=== PATIENT | male | born 1990 | race Caucasian/White ===

== ENCOUNTER 2018-06-24 07:04 | Inpatient (IN) | payer BC ==
[2018-06-24] VITALS (12 sets, daily range): BP systolic 90–139; BP diastolic 44–70
[~2018-06-24] VITALS: Ht 188 cm; Wt 70.9 kg
[2018-06-24] MEDS ORDERED: NOVOLOG100 UNIT/1 SUBQ (07:13)
[2018-06-24 07:27] LABS: ABSOLUTE LYMPHOCYTES 3.3 thou/uL (0.8-5.3); ABSOLUTE MONOCYTES 0.5 thou/uL (0.0-1.2); ABSOLUTE NEUTROPHILS 5.5 thou/uL (1.6-8.1); BASOPHILS 0.5 %; EOSINOPHILS 0.5 %; HEMATOCRIT 47.8 % (42.0-52.0); HEMOGLOBIN 16.3 gm/dL (14.0-18.0); LYMPHOCYTES 35.1 %; MCH 29.8 pg (26.0-34.0); MCHC 34.1 g/dL (28.0-37.0); MCV 87.4 fL (80.0-100.0); MONOCYTES 5.5 %; MPV 9.9 fl. (7.2-11.1); NUCLEATED RBCS 0 /100WBC; PLATELET COUNT* 211 thou/uL (150-400); POLYS 58.4 %; RBC 5.47 mil/uL (4.50-6.00); RDW-CV 12.5 % (10.5-14.5); WBC 9.4 thou/uL (4.0-11.0)
[2018-06-24 07:33] LABS: BE -16.8 mmol/L (-2 to +3); PCO2 27.2 mmHg (35.0-45.0)
[2018-06-24 07:34] LABS: HCO3 9.9 mmol/L (22.0-26.0); PO2 148.4 mmHg (75.0-100.0); pH 7.178 (7.340-7.450)
[2018-06-24 07:37] LABS: ANION GAP 25 mmol/L (7-16); BUN 19 mg/dL (7-18); CALCIUM 9.6 mg/dL (8.5-10.1); CHLORIDE 96 mmol/L (98-107); CO2 14 mmol/L (21-32); CREATININE 1.3 mg/dL (0.6-1.3); GLUCOSE 439 mg/dL (70-99); POTASSIUM 4.5 mmol/L (3.5-5.1); SODIUM 135 mmol/L (136-145)
[2018-06-24 07:44] LABS: ALBUMIN 4.6 g/dL (3.4-5.0); ALKALINE PHOSPHATASE 151 U/L (46-116); LIPASE 50 U/L (73-393); SGOT 17 U/L (15-37); SGPT 21 U/L (30-65); TOTAL BILIRUBIN 0.9 mg/dL (<0.1-1.0); TOTAL PROTEIN 8.2 g/dL (6.4-8.2); TROPONIN-I LEVEL <0.06 ng/mL (<0.06)
[2018-06-24 08:07] LABS: ICTOTEST (BILI CONFIRMATORY) Negative (Negative); URINE BILIRUBIN 1+ (Negative); URINE BLOOD NEGATIVE (Negative); URINE CLARITY CLEAR; URINE COLOR YELLOW; URINE GLUCOSE-RANDOM 2+ (Negative); URINE KETONES 2+ (Negative); URINE LEUKOCYTES-REFLEX NEGATIVE (Negative); URINE NITRITE-REFLEX NEGATIVE (Negative); URINE PROTEIN NEGATIVE (Negative); URINE SPECIFIC GRAVITY >= 1.030 (1.005-1.030); URINE UROBILINOGEN 0.2 E.U./dl (0.2-1.0)
--- NOTE | 2018-06-24 10:00 | NUR ---
PT ARRIVED TO ICU ROOM 5 AT 0840. VSS. AFEBRILE. ON ROOM AIR. A&OX4. DENIES NAUSEA. NO VOMITING. STATES ACHING ALL OVER, BUT REFUSES MEDICATION AT THIS TIME. PT HAS CLOTHES, SHOES, CELL PHONE, KEYS, AND WALLET WITH HIM AT BEDSIDE. WEARING GLASSES. STATES HE RECENTLY MOVED HERE FROM [place] WITH HIS FAMILY AND DOES NOT HAVE THE SUPPLIES TO CHECK HIS BLOOD SUGAR AT HOME AND DOES NOT HAVE A PROVIDER. HE HAS BEEN GETTING INSULIN FROM [facility]. HE IS REQUESTING TO SPEAK WITH A CM REGARDING THE ISSUES LISTED ABOVE. GOALS FOR CARE INCLUDE MAINTAING STABLE VS, STABILIZING BLOOD SUGARS, AND PLACING PATIENT BACK ON HOME REGIMEN INCLUDING DIABETIC DIET. PT DENIES FURTHER QUESTIONS/CONCERNS.
[2018-06-24 11:21] LABS: CALCIUM 8.7 mg/dL (8.5-10.1); CREATININE 1.1 mg/dL (0.6-1.3); MAGNESIUM 2.2 mg/dL (1.8-2.4); PHOSPHORUS* 2.6 mg/dL (2.5-4.9); POTASSIUM 4.6 mmol/L (3.5-5.1)
--- NOTE | 2018-06-24 11:22 | NUR ---
GLUCOSE 124. DR NOTIFIED PER PROTOCOL. ORDERS OBTAINED TO CONTINUE PROTOCOL.
[2018-06-24 11:25] LABS: AMP/METHAMP Negative (Negative); BARBITURATES Negative (Negative); BENZODIAZEPINES Negative (Negative); COCAINE Negative (Negative); METHADONE Negative (Negative); OPIATES Negative (Negative); PCP Negative (Negative); THC Negative (Negative)
--- NOTE | 2018-06-24 14:36 | NUR ---
CALLED DR WITH 1100 RENAL PANEL AND MAG RESULTS. RECEIVED ORDERS TO DC DKA PROTOCOL, CHANGE FLUIDS TO NS, STOP INSULIN GTT AND START SQ INSULIN. PT C/O OF THROAT PAIN, ASKED FOR CHLORASEPTIC SPRAY AND ORDERS RECEIVED.
--- NOTE | 2018-06-24 16:07 | NUR ---
PT PROGRESSING TOWARDS GOALS WELL. VSS. ON ROOM AIR. AFEBRILE. OFF INSULIN DRIP. TOLERATING DIABETIC DIET WELL. BS STABLE. NO NAUSEA/VOMITING. USING THE URINAL WITHOUT DIFFICULTY. DENIES PAIN THIS AFTERNOON. PT VERBALIZED TO RN THAT HE RECENTLY MOVED AND THAT HE HAS NOT HAD TESTING SUPPLIES AT HOME, HE HAS BEEN GETTING INSULIN FROM [facility], AND NO LONGER HAS A PROVIDER. HE WOULD LIKE "HELP GETTING BACK ON TRACK". CM CONSULED-TO SEE PT TOMORROW. PT AT BEDSIDE. PT DENIES ANY FURTHER QUESTIONS/CONCERNS.
--- NOTE | 2018-06-24 17:58 | EKG ---
[place] [address] ELECTROCARDIOGRAM REPORT Name: SONDRA HAQUE Room: [address] ADM IN M.R.#: [id number] Admission: 06/24/18 Attend Phys: Alfredo Palmer MD Discharge: Date of : 89 Report #: [id number] THIS REPORT FOR: //name// [facility] ED Test Date: 2018-06-24 Test Time: 07:08:22 Pat Name: SONDRA HAQUE Department: Room: [facility] Gender: Recreational Therapy Aide: Tram ACEVEDO : 1990 Requested By: Branden Salgado Order Number: [id number] MD: John Boone Measurements Intervals [place] Rate: 92 P: 88 MD: 149 QRS: 67 QRSD: 92 T: 65 QT: 349 QTc: 432 Interpretive Statements Sinus rhythm Baseline wander in lead(s) V2 No previous ECG available for comparison Electronically Signed On 06-24-2018 17:57:59 CDT by John Boone [email or web address] <ELECTRONICALLY SIGNED> By: John Boone MD, [facility] 06/24/18 1757 7 7 John Boone MD, [facility] /EPI
--- NOTE | 2018-06-24 18:18 | NUR ---
PT REPORTS NOT HAVING EQUIPMENT TO CHECK BLOOD GLUCOSE LEVELS AT HOME. BLOOD GLUCOSE MACHINE GIVEN TO PT BY CONSTRUCTION SAFETY CONSULTANT.
[2018-06-25] VITALS (7 sets, daily range): BP systolic 93–108; BP diastolic 52–69
[2018-06-25 02:25] LABS: ABSOLUTE EOSINOPHILS 0.1 thou/uL (0.0-0.7); ABSOLUTE LYMPHOCYTES 3.9 thou/uL (0.8-5.3); ABSOLUTE MONOCYTES 0.4 thou/uL (0.0-1.2); ABSOLUTE NEUTROPHILS 4.3 thou/uL (1.6-8.1); BASOPHILS 0.4 %; EOSINOPHILS 0.9 %; HEMATOCRIT 41.6 % (42.0-52.0); HEMOGLOBIN 14.8 gm/dL (14.0-18.0); LYMPHOCYTES 44.9 %; MCH 30.4 pg (26.0-34.0); MCHC 35.5 g/dL (28.0-37.0); MCV 85.7 fL (80.0-100.0); MONOCYTES 4.3 %; MPV 9.3 fl. (7.2-11.1); NUCLEATED RBCS 0 /100WBC; PLATELET COUNT* 169 thou/uL (150-400); POLYS 49.5 %; RBC 4.86 mil/uL (4.50-6.00); RDW-CV 12.3 % (10.5-14.5); WBC 8.7 thou/uL (4.0-11.0)
[2018-06-25 03:36] LABS: ALBUMIN 3.4 g/dL (3.4-5.0); ALKALINE PHOSPHATASE 110 U/L (46-116); ANION GAP 10 mmol/L (7-16); BUN 15 mg/dL (7-18); CALCIUM 8.2 mg/dL (8.5-10.1); CHLORIDE 105 mmol/L (98-107); CO2 22 mmol/L (21-32); CREATININE 0.9 mg/dL (0.6-1.3); GLUCOSE 92 mg/dL (70-99); PHOSPHORUS* 3.6 mg/dL (2.5-4.9); POTASSIUM 3.8 mmol/L (3.5-5.1); SGOT 14 U/L (15-37); SGPT 17 U/L (30-65); SODIUM 137 mmol/L (136-145); TOTAL BILIRUBIN 0.5 mg/dL (<0.1-1.0); TOTAL PROTEIN 6.3 g/dL (6.4-8.2)
[2018-06-25 04:07] LABS: GLYCOHEMOGLOBIN (HGB A1C) 9.5 % (4.8-5.6)
--- NOTE | 2018-06-25 05:00 | NUR ---
ASSUMED CARE OF PT AT 2030 PT ALERT AND ORIENTED VS AND ASSESSEMENT STABLE. PT RUNNING NSR ON THE TELE MONITOR. PT C/O HEADACHE GAVE PRN TYLENOL AND CUP OF COFFEE THEN PT SLEPT UNTIL 4AM THEN CALLED OUT AND REQUESTED PAIN MEDS FOR HEADACHE, GAVE PRN EXCEDRINE PT THEN WENT BACK TO SLEEP NO FURTHER COMPLAINTS. WILL CONTINUE PLAN OF CARE.
[2018-06-25] MEDS ORDERED: NOVOLIN N100 UNIT/3 SUBQ (10:42)
[2018-06-25] MEDS ORDERED: HUMULIN R100 UNIT/M SUBQ (10:44)
[2018-06-25] MEDS ORDERED: FLEXERIL PO (10:48)
[2018-06-25] MEDS ORDERED: TYLENOL325 M1 PO (10:49)
--- NOTE | 2018-06-25 10:50 | NUR ---
MET WITH PT TO DISCUSS HOME SITUATION/DC PLANNING. PT LIVES WITH AND CHILDREN. HE RECENTLY MOVED TO THIS AREA FROM [place] FOR WORK. DENIES HAVING A PCP HERE YET. DID GIVE PT INFO AND ENCOURAGED HIM TO F/U SOON. TALKED WITH HIM ABOUT INSULIN AT [facility]. NURSING OBTAINED A NEW METER FOR HIM HE STATED HE HAD MISPLACED HIS IN THE MOVE. PT IS INDEPENDENT AND ACTIVE. DENIES ANY OTHER DC NEEDS AND PLANS TO RETURN HOME AT [place].
[2018-06-25] MEDS ORDERED: PROTONIX40 M1 PO (10:53)
[2018-06-25 11:14] LABS: URINE BLOOD NEGATIVE (Negative); URINE CLARITY CLEAR; URINE COLOR YELLOW; URINE GLUCOSE-RANDOM 2+ (Negative); URINE LEUKOCYTES NEGATIVE (Negative); URINE NITRITE NEGATIVE (Negative); URINE PROTEIN NEGATIVE (Negative); URINE SPECIFIC GRAVITY 1.025 (1.005-1.030); URINE UROBILINOGEN 0.2 E.U./dl (0.2-1.0)
[2018-06-25 11:31] LABS: URINE KETONES 3+ (Negative)
[2018-06-25 11:32] LABS: ACETEST (KETONE CONFIRMATORY) Large (Negative); ICTOTEST (BILI CONFIRMATORY) Negative (Negative); URINE BILIRUBIN 1+ (Negative)
--- NOTE | 2018-06-25 13:00 | NUR ---
PT C/O OF HEADACHE AND BACK PAIN. REPORTED TO TYLENOL AND EXCEDRIN DID NOT HELP PT. NO ORDERS RECEIVED.
[2018-06-25 15:59] LABS: CALCIUM 7.9 mg/dL (8.5-10.1)
[2018-06-25 16:31] LABS: URINE BLOOD NEGATIVE (Negative); URINE CLARITY CLEAR; URINE COLOR YELLOW; URINE GLUCOSE-RANDOM 3+ (Negative); URINE KETONES 2+ (Negative); URINE LEUKOCYTES-REFLEX NEGATIVE (Negative); URINE NITRITE-REFLEX NEGATIVE (Negative); URINE PROTEIN NEGATIVE (Negative); URINE UROBILINOGEN 0.2 E.U./dl (0.2-1.0)
[2018-06-25 16:34] LABS: ICTOTEST (BILI CONFIRMATORY) Negative (Negative); URINE BILIRUBIN 1+ (Negative)
--- NOTE | 2018-06-25 16:47 | NUR ---
BMP AND URINE RESULTS CALLED INTO DRGuilherme RECEIVED ORDER FOR DISCHARGE.
--- NOTE | 2018-06-25 17:25 | NUR ---
PT EDUCATED ON NEW MEDICATIONS. SCRIPTS GIVEN AND CARE NOTES PRINTED. PT HAD PCP RECOMMENDATIONS FROM PHARMACY AND ONE TOUCH VERIO FLEX GLUCOMETER SENT HOME WITH HIM. PT EDUCATED TO F/U WITH PCP. PT ASKED FOR SCRIPT FOR TEST STRIPS. CALLED AND RECEIVED SCRIPT FOR ONE TOUCH VERIO FELX TEST STRIPS 1 LARGE BOX DIRECTED. CALLED IN TO [facility]. SPOKE TO RECORDS COORDINATOR WHO ASKED IF THIS RN COULD LEAVE SCRIPT ON VOICEMAIL. SCRIPT LEFT ON PHARMACY VOICEMAIL.
== END 2018-06-25 17:01 | disposition home or self-care (01) | DRG 638 ==
LOC: M.ERS 07:04 → M.TBA-ER 07:45 → M.ICU 07:45
PROVIDERS: Emergency Medicine Emergency Medical Services; Internal Medicine; ADMIT Internal Medicine
DX: E11.10 Type 2 diabetes mellitus with ketoacidosis without coma (principal); E87.2 Acidosis; E87.1 Hypo-osmolality and hyponatremia; F17.210 Nicotine dependence, cigarettes, uncomplicated; E86.0 Dehydration; E11.65 Type 2 diabetes mellitus with hyperglycemia; K52.9 Noninfective gastroenteritis and colitis, unspecified; G89.29 Other chronic pain; M54.5 Low back pain; N28.9 Disorder of kidney and ureter, unspecified; Z79.899 Other long term (current) drug therapy

== ENCOUNTER 2021-08-05 21:00 | Emergency (ER) | payer OTHER ==
[~2021-08-05] VITALS: Ht 182.9 cm; Wt 75.4 kg
[~2021-08-05 21:00] MED LIST: FLEXERIL PO; HUMULIN R100 UNIT/M SUBQ; NOVOLIN N100 UNIT/3 SUBQ; NOVOLOG100 UNIT/1 SUBQ; PROTONIX40 M1 PO; TYLENOL325 M1 PO
[2021-08-05 21:35] LABS: BE -15.4 mmol/L (-2 to +3); PCO2 VENOUS 26.1 mmHg (41.0-51.0); PO2 VENOUS 64.4 mmHg (35.0-45.0)
[2021-08-05 21:38] LABS: NUCLEATED RBCS 0 /100WBC
[2021-08-05 21:41] LABS: ABSOLUTE LYMPHOCYTES 2.3 thou/uL (0.8-5.3); ABSOLUTE MONOCYTES 0.5 thou/uL (0.0-1.2); ABSOLUTE NEUTROPHILS 8.8 thou/uL (1.6-8.1); BASOPHILS 0.3 %; EOSINOPHILS 0.3 %; HEMATOCRIT 45.9 % (42.0-52.0); HEMOGLOBIN 15.2 gm/dL (14.0-18.0); LYMPHOCYTES 19.7 %; MCH 30.1 pg (26.0-34.0); MCHC 33.2 g/dL (28.0-37.0); MCV 90.6 fL (80.0-100.0); MPV 9.1 fl. (7.2-11.1); PLATELET COUNT* 213 thou/uL (150-400); POLYS 75.7 %; RBC 5.07 mil/uL (4.50-6.00); RDW-CV 12.6 % (10.5-14.5); WBC 11.6 thou/uL (4.0-11.0)
[2021-08-05 21:46] LABS: CALCIUM 9.2 mg/dL (8.5-10.1); CREATININE 1.5 mg/dL (0.6-1.3); POTASSIUM 4.6 mmol/L (3.5-5.1)
[2021-08-05 21:51] LABS: ALBUMIN 4.7 g/dL (3.4-5.0); MAGNESIUM 1.8 mg/dL (1.8-2.4); TOTAL BILIRUBIN 1.4 mg/dL (<0.1-1.0); TOTAL PROTEIN 7.8 g/dL (6.4-8.2)
[2021-08-05 22:18] LABS: URINE BILIRUBIN NEGATIVE (Negative); URINE BLOOD TRACE (Negative); URINE CLARITY CLEAR; URINE COLOR YELLOW; URINE GLUCOSE-RANDOM 2+ (Negative); URINE KETONES 3+ (Negative); URINE LEUKOCYTES-REFLEX NEGATIVE (Negative); URINE NITRITE-REFLEX NEGATIVE (Negative); URINE PROTEIN NEGATIVE (Negative); URINE SPECIFIC GRAVITY 1.025 (1.005-1.030); URINE UROBILINOGEN 0.2 E.U./dl (0.2-1.0)
[2021-08-05 23:34] VITALS: BP 126/65
--- NOTE | 2021-08-06 09:27 | EKG ---
[place] [address] ELECTROCARDIOGRAM REPORT Name: SONDRA HAQUE Room: [facility]#: [id number] Admission: 08/05/21 Attend Phys: Discharge: 08/05/21 Date of : 89 Date of Service: 08/05/21 2314 Report #: [id number] THIS REPORT FOR: //name// [facility] ED Test Date: 2021-08-05 Test Time: 23:14:14 Pat Name: SONDRA HAQUE Department: Room: Gender: Health Information Manager: : 1990 Requested By: Irish Borden Order Number: [id number] MD: Jabier Linton Measurements Intervals [place] Rate: 90 P: 83 MD: 164 QRS: 66 QRSD: 92 T: 57 QT: 367 QTc: 449 Interpretive Statements Sinus rhythm Borderline low voltage, extremity leads ST elev, probable normal early repol pattern Compared to ECG 06/24/2018 07:08:22 ST (T wave) deviation now present Electronically Signed On 08-06-2021 9:26:57 CDT by Jabier Linton [email or web address] <ELECTRONICALLY SIGNED> By: Jabier Linton MD, [facility] 08/06/21 0926 231 13 Jabier Linton MD, [facility] /EPI
== END 2021-08-05 23:37 | disposition short-term general hospital (02) ==
LOC: M.ERS 21:00
PROVIDERS: Emergency Medicine
DX: E10.10 Type 1 diabetes mellitus with ketoacidosis without coma (principal); Z20.822 Contact with and (suspected) exposure to COVID-19; R35.0 Frequency of micturition; R11.2 Nausea with vomiting, unspecified; R10.13 Epigastric pain; R53.1 Weakness; R68.2 Dry mouth, unspecified; R19.7 Diarrhea, unspecified; Z79.4 Long term (current) use of insulin; Z79.899 Other long term (current) drug therapy